=== PATIENT | female | born 1985 | race Hispanic/Latino ===

== ENCOUNTER 2019-08-01 17:20 | Emergency (ER) | payer OTHER | END 2019-08-01 17:51 | disposition home or self-care (01) | LOC: EDH 17:20 → EEVIPCON 17:20 → EDH 17:51 | DX: Z00.00 Encounter for general adult medical examination without abnormal findings (principal); F32.9 Major depressive disorder, single episode, unspecified; F41.9 Anxiety disorder, unspecified; Z72.0 Tobacco use ==